=== PATIENT | male | born 1945 | race Caucasian/White ===

== ENCOUNTER → 2017-08-30 | Outpatient (CLI) | payer MEDICARE | END | disposition home or self-care (01) | LOC: KCIC MRI 14:51 | DX: S46.019A Strain of muscle(s) and tendon(s) of the rotator cuff of unspecified shoulder, initial encounter (principal); T15.90XA Foreign body on external eye, part unspecified, unspecified eye, initial encounter; M25.711 Osteophyte, right shoulder; X58.XXXA Exposure to other specified factors, initial encounter; Y93.89 Activity, other specified; Y92.89 Other specified places as the place of occurrence of the external cause; Y99.8 Other external cause status | CPT/HCPCS: 70030; 73221 ==